=== PATIENT | male | born 1955 | race Caucasian/White ===

== ENCOUNTER 2024-06-23 11:49 | Day surgery (SDC) | payer MEDICARE ==
[~2024-06-23] VITALS: Ht 175.3 cm; Wt 123.0 kg
--- NOTE | ~2024-06-23 | OR ---
[facility] [address], [place] [address] Draft DATE OF OPERATION: 06/23/2024 SURGEON: Queenie Davila MD PREOPERATIVE DIAGNOSIS: Colon screening. POSTOPERATIVE DIAGNOSES: 1. Sigmoid diverticulosis. 2. Small polyp left colon and multiple small hyperplastic polyps rectosigmoid. PROCEDURE: Total colonoscopy to cecum with cold morcellation polypectomy left colon x1 and multiple cold morcellation polypectomies rectosigmoid. ANESTHESIA: Intravenous sedation; fentanyl 100 mcg and Versed 9 mg. INDICATION: A 69-year-old white man is a patient of Patience Lea. He underwent colonoscopy by me 14 years ago and found to have only diverticulosis. He has no family history of colon cancer. He has had episodic rectal bleeding as well, which he ascribes to hemorrhoids. He has never had polyps in the past and no family history of colon cancer. He is admitted at this time to undergo colonoscopy. He understands the risk of bleeding, infection, and perforation. FINDINGS: The prep was good. Complete colonoscopy was undertaken to the cecum. There was a small adenomatous polyp of the left colon which was excised and several small probably hyperplastic polyps of rectosigmoid also excised. He had diverticulosis of the sigmoid and left colon, but there were no other findings of note. DESCRIPTION OF PROCEDURE: The patient was brought to the endoscopy suite and placed in the lateral decubitus position, given intravenous sedation to the point of slurred speech and nystagmus. Digital rectal examination was normal. An Olympus video colonoscope was passed in the rectum and manipulated throughout the colon noting diverticula. Scope was ultimately passed to the cecum. The ileocecal valve and appendiceal orifice were normal. Scope was then withdrawn and examination PATIENT NAME: ANNIA WARD OPERATIVE REPORT DATE OF : 51 REPORT #: [id number] PHYSICIAN: QUEENIE DAVILA MD PCP: ROSE LUKE REPORT IS CONFIDENTIAL AND NOT TO BE RELEASED WITHOUT AUTHORIZATION [facility] [address], [place] [address] Draft showed no sign of abnormality until the mid descending colon where a small adenomatous polyp was seen. This was excised with cold morcellation technique. Further withdrawal confirmed diverticula of the sigmoid. In the rectosigmoid, there were several small probably hyperplastic appearing polyps, all of them excised and passed in the same container. Retroflexed view was otherwise normal except for minimal hemorrhoidal change. The scope was removed and the patient was taken to the recovery room in good condition. CONCLUDING DIAGNOSES: Adenomatous polyp x1, left colon, possible hyperplastic polyps rectosigmoid (multiple). PLAN: Recommend repeat colonoscopy in seven years, sooner if clinical symptoms should warrant. We will recommend high-fiber diet too. He is anticipated to undergo repair of incarcerated supraumbilical hernia by me in the near future. MD DEVON Gonzalez/ROSALIA /[id number] cc: FRED Nesbitt Copies: ~ PATIENT NAME: ANNIA WARD OPERATIVE REPORT DATE OF : 51 REPORT #: [id number] PHYSICIAN: QUEENIE DAVILA MD PCP: ROSE LUKE PAC REPORT IS CONFIDENTIAL AND NOT TO BE RELEASED WITHOUT AUTHORIZATION
[~2024-06-23 11:49] MED LIST: ASPIR-LOW81 MG PO; BUPROPION HCL150 M2 PO; ESCITALOPRAM OX10 MG PO; HYDROCHLOROTH12.5 MG PO; HYDROCODON-ACE1 EAC8 PO; IBLOOD GLUCOSE TEST STRIP 1 EA TEST VI PRN; LACTATED RINGER'S 1,000 ML IV SCH; LEVOTHYROXINE25 MCG PO; LIDOCAINE HCL 1% 5 ML SDV INJ ONE; LIPITOR20 MG PO; LISINOPRIL-HCT1 EAC1 PO; LISINOPRIL20 MG PO; MAGNESIUM CHLOR64 MG PO; MIDAZOLAM HCL 5 MG/5 ML VIAL IV PRN; NEXIUM20 MG PO; NORVASC10 MG PO; OMEPRAZOLE20 MG PO; OXYCODON-ACETA1 EAC2 PO; POTASSIUM CHLO10 MEQ PO; RANITIDINE HCL150 MG PO; TOPROL XL25 MG PO; VOLTAREN100 GM TOP; ZOLOFT25 MG PO; fentaNYL citrate 100 MCG/2 ML VIAL IV PRN
[2024-06-23 12:04] VITALS: BP 142/72
[2024-06-23] MEDS ORDERED: fentaNYL citrate 100 MCG/2 ML VIAL ONE (13:25)
[2024-06-23] MEDS ORDERED: MIDAZOLAM HCL 5 MG/5 ML VIAL ONE (13:25)
--- NOTE | 2024-06-23 14:40 | NUR ---
06/23/24 1440 Melania Wadsworth 1428- PT ARRIVES TO PACU, LEFT LATERAL POSITION, AWAKE BUT DROWSY. ANSWERING QUESTIONS, DENIES PAIN AND NAUSEA. PT PASSING GAS, ENCOURAGED TO CONTINUE. LR INFUSING TO RW IV. ABD ROUND AND SOFT, NON DISTENDED. BREATHING EVEN AND NON LABORED, O2 AT 3L PER NC. ALL MONITORS IN PLACE. 1440- PT MOVED TO ROOM AIR AT THIS TIME, PT SAT UP TO SEMI SNIDER, ROLLED TO BACK ON OWN.
[2024-06-23 14:56] VITALS: BP 110/65
--- NOTE | 2024-06-25 09:05 | PATH ---
[facility] [address] [facility] [place], [place] [address] Signed SPECIMEN(S): A SIGMOID POLYP SPECIMEN(S): B RECTAL POLYPS SPECIMEN SOURCE: A. SIGMOID POLYP B. RECTAL POLYPS CLINICAL HISTORY: Rectal bleeding FINAL PATHOLOGIC DIAGNOSIS: A. Colon, sigmoid, polypectomy: - Tubular adenoma B. Rectum, polypectomy: - Hyperplastic polyp BRP MICROSCOPIC EXAMINATION: Histologic sections of all submitted blocks are examined by light microscopy. These findings, together with the gross examination, support the pathologic diagnosis. GROSS DESCRIPTION: A. The specimen, labeled and designated "Sixto, sigmoid colon polyp," is received in formalin and consists of four zhang soft tissue fragments, ranging from 0.1 to 0.2 cm. Entirely submitted in (A1). B. The specimen, labeled and designated "Sixto, rectal polyps," is received in formalin and consists of two zhang soft tissue fragments, ranging from 0.1 to 0.2 cm. Entirely submitted in (B1). JS (under the direct supervision of a pathologist) The Gross Description was prepared using a voice recognition system. The report was reviewed for accuracy; however, sound-alike word errors, addition and/or deletions may occur. If there is any question about this report, please contact Client Services. ADDITIONAL NOTES: Immunohistochemical and/or in situ hybridization studies if performed in this case included appropriate positive controls that reacted as expected. This test was developed and its performance characteristics determined by [facility]. It has not been cleared or PATIENT NAME: ANNIA WARD FLORES PATHOLOGY DATE OF : 51 REPORT #: [id number] PHYSICIAN: DORY QUEZADA PCP: ROSE LUKE PAC REPORT IS CONFIDENTIAL AND NOT TO BE RELEASED WITHOUT AUTHORIZATION [address] [place], [place] [address] Signed approved by the U.S. Food and Drug Administration. The FDA has determined that such clearance or approval is not necessary. This test is used for clinical purposes. It should not be regarded as investigational or for research. [facility] is certified under the Clinical Laboratory Improvement Amendments of 1988 (CLIA) as qualified to perform high complexity clinical laboratory testing. PERFORMING LABORATORY: Technical component was performed by [facility], [address] [place] [address] (CLIA# [id number]). Professional interpretation was performed by [facility], [address] [place] [address] (CLIA#: [id number]). Diagnostician: Home Moran MD Pathologist Electronically Signed 06/25/2024 Copies: ~ PATIENT NAME: ANNIA WARD PATHOLOGY DATE OF : 51 REPORT #: [id number] PHYSICIAN: DORY QUEZADA PCP: ROSE LUKE PAC REPORT IS CONFIDENTIAL AND NOT TO BE RELEASED WITHOUT AUTHORIZATION
== END 2024-06-23 15:05 | disposition home or self-care (01) ==
LOC: DS 11:49
PROVIDERS: ATTEND Surgery
PROC: 0DBN8ZZ Excision of Sigmoid Colon, Via Natural or Artificial Opening Endoscopic (ICD-10-PCS; 2024-06-23)
PROC: 0DBG8ZZ Excision of Left Large Intestine, Via Natural or Artificial Opening Endoscopic (ICD-10-PCS; principal; 2024-06-23 13:00)
DX: Z12.11 Encounter for screening for malignant neoplasm of colon (principal); D12.5 Benign neoplasm of sigmoid colon; K62.1 Rectal polyp; K57.30 Diverticulosis of large intestine without perforation or abscess without bleeding; I10 Essential (primary) hypertension; G47.30 Sleep apnea, unspecified; K21.9 Gastro-esophageal reflux disease without esophagitis; K42.9 Umbilical hernia without obstruction or gangrene; Z79.899 Other long term (current) drug therapy; Z90.49 Acquired absence of other specified parts of digestive tract
CPT/HCPCS: 99153; G0500; J2250; J3010; J7121

== ENCOUNTER 2024-07-03 05:50 | Day surgery (SDC) | payer MEDICARE ==
[2024-06-30 10:30] VITALS: BP 130/69
[~2024-07-03] VITALS: Ht 175.3 cm; Wt 118.2 kg
[~2024-07-03 05:50] MED LIST changes: -IBLOOD GLUCOSE TEST STRIP 1 EA TEST VI PRN; -LIDOCAINE HCL 1% 5 ML SDV INJ ONE; -MIDAZOLAM HCL 5 MG/5 ML VIAL IV PRN; -fentaNYL citrate 100 MCG/2 ML VIAL IV PRN
[2024-07-03 06:13] VITALS: BP 151/64
[2024-07-03] MEDS ORDERED: CEFAZOLIN SODIUM 2 GM/20 ML SYR IV SCH (07:00)
[2024-07-03] MEDS ORDERED: HEParin SOD (PORCINE) 5,000 UNIT/ML SDV SUB-Q SCH (07:00)
[2024-07-03] MEDS ORDERED: LIDOCAINE HCL 1% 5 ML SDV INJ ONE (07:00)
[2024-07-03] MEDS ORDERED: IBLOOD GLUCOSE TEST STRIP 1 EA TEST VI PRN ×2 (07:00→08:15)
--- NOTE | 2024-07-03 07:15 | NUR ---
WITH PT COMFORTABLE. SENIOR PRODUCT DEVELOPMENT MANAGER IN TO TALK WITH PT.
[2024-07-03] MEDS ORDERED: KETAMINE in NS 50 MG/5 ML SYR ONE (07:20)
[2024-07-03] MEDS ORDERED: fentaNYL citrate 100 MCG/2 ML VIAL ONE (07:20)
[2024-07-03] MEDS ORDERED: ondansetron HCL 4 MG/2 ML VIAL ONE (07:21)
[2024-07-03] MEDS ORDERED: DEXAMETHASONE SOD PHOS 4 MG/ML VIAL ONE (07:21)
[2024-07-03] MEDS ORDERED: LIDOCAINE HCL 2% 5 ML SDV ONE (07:21)
[2024-07-03] MEDS ORDERED: dexmedeTOMIDine HCl 200 MCG/2 ML VIAL ONE (07:21)
[2024-07-03] MEDS ORDERED: propofoL 200 MG/20 ML VIAL ONE (07:21)
[2024-07-03] MEDS ORDERED: ACETAMINOPHEN 1,000 MG/100 ML VIAL ONE (07:21)
[2024-07-03] MEDS ORDERED: ePHEDrine sulfate 50 MG/ML AMP ONE (07:54)
[2024-07-03] MEDS ORDERED: fentaNYL citrate 50 MCG/ML SDV IV PRN (08:15)
[2024-07-03] MEDS ORDERED: ondansetron HCL 4 MG/2 ML VIAL IV PRN (08:15)
[2024-07-03] MEDS ORDERED: NALOXONE HCL 0.4 MG SYR IV PRN ×2 (08:15→08:45)
[2024-07-03] MEDS ORDERED: OXYCODON-ACETA1 EAC2 PO (08:38)
[2024-07-03] MEDS ORDERED: ACETAMINOPHEN500 MG PO (08:39)
[2024-07-03] MEDS ORDERED: MOTRIN IB200 MG PO (08:39)
[2024-07-03] MEDS ORDERED: ACETAMINOPHEN 500 MG TAB PO PRN (08:45)
[2024-07-03] MEDS ORDERED: OXYCODONE/APAP 7.5/325 TAB PO PRN (08:45)
[2024-07-03] MEDS ORDERED: HYDROmorphone HCL 1 MG/ML SYR ONE (08:54)
[2024-07-03] MEDS ORDERED: HYDROmorphone HCL 1 MG/ML SYR IV PRN (09:00)
--- NOTE | 2024-07-03 09:15 | NUR ---
07/03/24 0915 Sourav,hKalida 9284 PT ARRIVED TO PACU ON 6L VIA MASK, VSS. PT WAKES AND REPORTS 4-5/10 PAIN.
[2024-07-03 09:35] VITALS: BP 118/54
--- NOTE | 2024-07-03 10:21 | NUR ---
HAS EATEN CRACKERS AND DRANK WATER AND REQUESTED PAIN MED AND GIVEN.
[2024-07-03 10:36] VITALS: BP 114/52
--- NOTE | 2024-07-03 10:52 | NUR ---
STATES DOESNT HAVE TO URINATE YET. SECOND CUP COFFEE GIVEN PER REQUEST.
[2024-07-03 11:22] VITALS: BP 116/61
--- NOTE | 2024-07-03 11:45 | NUR ---
ALL COMPUTER HAND OUTS REVIEWED WITH PT AND . STATE THEY WILL READ AT HOME TOO.
--- NOTE | 2024-07-03 11:50 | NUR ---
HAS VOIDED 125MLS HEMALATHA URINE. HAS DRANK APPROX 800MLS WATER AND COFFEE
[2024-07-03] MEDS ORDERED: SEVOFLURANE 250 ML BTL INH ONE (17:12)
--- NOTE | 2024-07-04 12:12 | OR ---
[facility] [address] [place], [place] [address] Signed DATE OF OPERATION: 07/03/2024 SURGEON: Queenie Davila MD PREOPERATIVE DIAGNOSES: 1. Incarcerated supraumbilical hernia and umbilical hernia, 4 cm or greater. 2. Obesity. POSTOPERATIVE DIAGNOSES: 1. Incarcerated supraumbilical hernia and umbilical hernia, 4 cm or greater. 2. Obesity. 3. Fascial defect greater than 4 cm in aggregate. PROCEDURES: 1. Repair of greater than 4 cm incarcerated incisional hernia. 2. Implantation of ProGrip Prolene mesh underlay technique with fascial closure. ANESTHESIA: General, LMA; John Barton, INSTRUCTOR [employer] and local 10 mL of 0.25% Marcaine with epinephrine. INDICATIONS FOR THE PROCEDURE: This 69-year-old white man is a patient of Alexia Phipps. The patient is from [place], [place]. He is noted to have a relatively bulky hernia in the region of the supraumbilical and umbilical area. He underwent colonoscopy recently, which showed no worrisome findings. A cholecystectomy was performed in 2016 and there is now a hernia in the region of the umbilicus, it is incarcerated and completely non reducible. It is not strangulated clinically. The bulk of the hernia is greater than 4 cm, the defect size is uncertain. He is admitted at this time to undergo repair of the hernia. He understands the risk of bleeding, infection, recurrence and so on. FINDINGS: Herniated properitoneal fat and omentum was noted. This was reduced fully. The fascial defect initially was noted to be 3 cm. There were two smaller defects inferior and in the right lateral aspect. In aggregate, the defect was greater than 4 cm. The properitoneal space was developed allowing for implantation of Prolene mesh (ProGrip type), covering all the defects with reapproximation of the fascia transversely. He tolerated procedure well. DESCRIPTION OF PROCEDURE: The patient was brought to the operating room and given a general LMA type anesthetic. Electronically Signed By: QUEENIE DAVILA MD 07/04/24 1212 PATIENT NAME: ANNIA WARD OPERATIVE REPORT DATE OF : 51 REPORT #: [id number] PHYSICIAN: QUEENIE DAVILA MD PCP: ALEXIA PHIPPS PA-C REPORT IS CONFIDENTIAL AND NOT TO BE RELEASED WITHOUT AUTHORIZATION [facility] [address] [place], [place] [address] Signed Preoperative antibiotic Ancef was given. Sequential compression device stockings applied and heparin subcutaneously administered. The abdomen was prepared with a chlorhexidine solution and draped sterilely. Manipulation of the hernia showed it was completely non-reducible. A curvilinear incision was made in the left lateral aspect in the umbilical fold. Dissection was carried through the dermis with blunt electrocautery dissection. The herniated viscus appeared to be fatty and was densely adherent to the overlying dermis of the umbilical skin itself. This was freed with blunt and electrocautery dissection. Once the herniated fat was freed from the surrounding soft tissue, it was more fully evaluated the defect itself. With various manipulations, the hernia could be manipulated back into the properitoneal space and most likely represent a properitoneal fat or omentum. The properitoneal space was then developed bluntly with blunt dissection with a finger tip and some amounts of cautery. There appeared upon palpation a defect inferior to the actual defect at this point, which was at the umbilicus proper and measured at least 1 cm. There is another similar defect inferiorly and to the right of uncertain origin. In aggregate, the fascial defect would be greater than 4 cm. Given this finding, a segment of Prolene ProGrip mesh was implanted in the properitoneal space covering all the defects. It was secured to the skin with four-point fixation using 0-Prolene suture. The fascial defect was then reapproximated with interrupted 0-Prolene suture as well. This was in a horizontal mattress configuration. Irrigation was undertaken and 10 mL of 0.25% Marcaine with epinephrine injected locally. The fatty layer was reapproximated with interrupted 2-0 Vicryl and skin closed with running subcuticular 3-0 Vicryl. Steri-Strips were applied as was an Acticoat dressing. An abdominal binder was obtained as well. The patient was ultimately extubated without incident and taken to the recovery room in good condition, having suffered no complications. Sponge, needle, and instrument counts reported as correct x3. MD DEVON Gonzalez/ROSALIA /[id number] cc: FRED Nesbitt Electronically Signed By: QUEENIE DAVILA MD 07/04/24 1212 PATIENT NAME: ANNIA WARD OPERATIVE REPORT DATE OF : 51 REPORT #: [id number] PHYSICIAN: QUEENIE DAVILA MD PCP: ALEXIA PHIPPS PA-C REPORT IS CONFIDENTIAL AND NOT TO BE RELEASED WITHOUT AUTHORIZATION [facility] [address] [place], [place] [address] Signed Copies: ~ Electronically Signed By: QUEENIE DAVILA MD 07/04/24 1212 PATIENT NAME: ANNIA WARD OPERATIVE REPORT DATE OF : 51 REPORT #: [id number] PHYSICIAN: QUEENIE DAVILA MD PCP: ALEXIA PHIPPS PA-C REPORT IS CONFIDENTIAL AND NOT TO BE RELEASED WITHOUT AUTHORIZATION
== END 2024-07-03 11:35 | disposition home or self-care (01) ==
LOC: DS 05:50
PROVIDERS: ATTEND Surgery
PROC: 0WUF0JZ Supplement Abdominal Wall with Synthetic Substitute, Open Approach (ICD-10-PCS; principal; 2024-07-03 07:30)
DX: K42.0 Umbilical hernia with obstruction, without gangrene (principal); K64.9 Unspecified hemorrhoids; I10 Essential (primary) hypertension; K21.00 Gastro-esophageal reflux disease with esophagitis, without bleeding; E66.9 Obesity, unspecified; Z68.39 Body mass index [BMI] 39.0-39.9, adult; Z79.890 Hormone replacement therapy; Z79.899 Other long term (current) drug therapy; Z90.49 Acquired absence of other specified parts of digestive tract
CPT/HCPCS: 00750; C1781; J0131; J0690; J1100; J1171; J1644; J2003; J2405; J2704; J3010; J3490; J7121